=== PATIENT | male | born 1960 ===

== ENCOUNTER 2019-12-09 22:19 | Emergency (ER) | payer OTHER ==
[~2019-12-09] VITALS: Ht 170.2 cm; Wt 100.0 kg
[2019-12-09] MEDS ORDERED: NORVASC5 M1 PO (23:01)
[2019-12-09] MEDS ORDERED: HUMULIN 70/30 SC ×2 (23:01)
[2019-12-09] MEDS ORDERED: HYDROCHLOROT25 MG PO (23:02)
[2019-12-09] MEDS ORDERED: ASPIRIN CHEWABL81 MG PO (23:02)
[2019-12-09] MEDS ORDERED: LISINOPRIL40 MG PO (23:02)
[2019-12-09] MEDS ORDERED: NOVOLIN R100 UNIT/1 SC (23:04)
[2019-12-09] MEDS ORDERED: LISINOPRIL20 M1 PO (23:05)
[2019-12-09] MEDS ORDERED: METFORMIN HYDR850 MG PO (23:06)
[2019-12-09 23:30] LABS: ANION GAP 13 (6-22 (CALC)); BUN 13 mg/dL (9-20); BUN/CREATININE RATIO 15 (12-20 (CALC)); CARBON DIOXIDE 25 mmol/l (22-30); CHLORIDE 101 mmol/l (95-108); CREATININE 0.9 mg/dL (0.7-1.3); GFR > 60 ML/MIN (>=60 (CALC)); GFR FOR AFR.AMER. > 60 ML/MIN (>=60 (CALC)); POTASSIUM 4.1 mmol/l (3.5-5.1); SODIUM 134 mmol/l (137-146)
[2019-12-10 00:30] VITALS: BP 137/93
== END 2019-12-10 00:30 | disposition designated cancer center or children's hospital (05) | DRG 639 ==
LOC: ED 22:19
PROVIDERS: Family Medicine
DX: E11.649 Type 2 diabetes mellitus with hypoglycemia without coma (principal); I10 Essential (primary) hypertension; Z79.4 Long term (current) use of insulin; Z20.828 Contact with and (suspected) exposure to other viral communicable diseases